=== PATIENT | male | born 2005 | race Two or more races ===

== ENCOUNTER 2025-04-14 15:36 | Inpatient (IN) | payer OTHER ==
[~2025-04-14] VITALS: Ht 170.2 cm; Wt 97.4 kg
[2025-04-14 01:00] VITALS: BP 134/79; PULSE 94; RESP 17; TEMP 97.7; O2SAT 96
--- NOTE | 2025-04-14 15:55 | ED.PDOC ---
GI ASSESSMENT HPI Comments This is a 19 year-old male who presents to the ED with a chief complaint of constipation with abdominal pain as of 0900 today. Patient reports abdominal pain woke him up from his sleep. Patient states he took laxatives earlier today with no relief. Patient additionally reports X1 episode of emesis after drinking water. Patient has no further complaints at this time and otherwise denies symptoms of chest pain, dysuria, diarrhea, fever, or chills. Chief Complaint: Abdominal Pain Time Seen by MD: 15:44 Reviewed Notes: Medications, Allergies Allergies: Coded Allergies: NO KNOWN ALLERGIES (Unverified , 04/14/25) Information Source: Patient Mode of Arrival: Ambulatory Timing: Hours Duration: Since onset Severity: Moderate Pain Location: Diffuse Associated sign and symptoms: Constipation Past Medical History PAST MEDICAL HISTORY: Denies Surgical History: Denies all surgeries Family History Family History: Reviewed,noncontributory to illness, No family hx of Cancer, No family hx of DM, No family hx of Heart reginald, No family hx of HTN, No family hx ofKidney reginald, No family hx of Liver reginald, No family hx of Lung reginald, No family hx of Stroke Social History Smoker: Non-Smoker Alcohol: Denies ETOH Use Drugs: Denies Drug Use Lives In: Home Constitutional: denies: chills, diaphoresis, fatigue, fever, malaise, sweats, weakness, others EENTM: denies: blurred vision, double vision, ear bleeding, ear discharge, ear drainage, ear pain, ear ringing, eye pain, eye redness, hearing loss, mouth pain, mouth swelling, nasal discharge, nose bleeding, nose congestion, nose pain, photophobia, tearing, throat pain, throat swelling, voice changes, others Respiratory: denies: cough, hemoptysis, orthopnea, SOB at rest, shortness of breath, SOB with excertion, stridor, wheezing, others Cardiovascular: denies: chest pain, dizzy spells, diaphoresis, Dyspnea on exertion, edema, irregular heart beat, left arm pain, lightheadedness, palpitations, PND, syncope, others Gastrointestinal: reports: abdominal pain, constipated; denies: abdomen dis tended, blood streaked bowels, diarrhea, dysphagia, difficulty swallowing, hematemesis, melena, nausea, poor appetite, poor fluid intake, rectal bleeding, rectal pain, vomiting, others Genitourinary: denies: burning, dysuria, flank pain, frequency, hematuria, incontinence, penile discharge, penile sore, pain, testicle pain, testicle swelling, urgency, others Neurological: denies: dizziness, fainting, headache, left sided numbness, left sided weakness, numbness, paresthesia, pre-existing deficit, right sided numbness, right sided weakness, seizure, speech problems, tingling, tremors, weakness, others Musculoskeletal: denies: back pain, gout, joint pain, joint swelling, muscle pain, muscle stiffness, neck pain, others Integumetry: denies: bruises, change in color, change in hair/nails, dryness, laceration, lesions, lumps, rash, wounds, others Allergic/Immunocompromised: denies: Difficulty Healing, Frequent Infections, Hives, Itching, others Hematologic/Lymphatic: denies: anemia, blood clots, easy bleeding, easy bruising, swollen glands, others Endocrine: denies: excessive hunger, excessive sweating, excessive thirst, excessive urination, flushing, intolerance to cold, intolerance to heat, unexplained weight gain, unexplained weight loss, others Psychiatric: denies: anxiety, bipolar disorder, depression, hopeless, panic disorder, schizophrenia, sleepless, suicidal, others All Other Systems: Reviewed and Negative Physical Exam General Appearance: Moderate Distress HEENT: Normal ENT Inspection, Pharynx Normal, TMs Normal Neck: Full Range of Motion, Non-Tender, Normal, Normal Inspection Respiratory: Chest Non-Tender, Lungs Clear, No Accessory Muscle Use, No Respiratory Distress, Normal Breath Sounds Cardiovascular: No Edema, No JVD, No Murmur, No Gallop, Normal Peripheral Pulses, Regular Rate/Rhythm Breast Exam: Deferred Gastrointestinal: Diffuse Genitalia: Deferred Pelvic: Deferred Rectal: Deferred Extremities: No calf tenderness, Normal capillary refill, Normal inspection, Normal range of motion, Non-tender, No pedal edema Musculoskeletal : Apperance: Normal Neurologic: Alert, equipment cleaner II-XII nml as Tested, No Motor Deficits, Normal Affect, Normal Mood, No Sensory Deficits Cerebellar Function: Normal Reflexes: Normal Skin: Dry, Normal Color, Warm Peripheral Pulses: 3+ Radial (R), 3+ Radial (L) Lymphatic: No Adenopathy Was a procedure done? Was a procedure done?: No GI differential Dx Differential Diagnosis: Constipation, Diverticular disease, Esophagitis, Gastritis/PUD, Gastroenteritis, Dehydration, Bacterial, Parasitic, Viral X-Ray, Labs, Meds, VS Vital Signs Date Time Temp Pulse Resp B/P (MAP) Pulse Ox O2 Delivery O2 Flow Rate FiO2 04/14/25 16:46 98.2 86 18 136/68 (90) 98 98.2 04/14/25 16:45 98.2 86 18 136/68 (90) 98 98.2 04/14/25 16:45 86 18 98 Room Air* 0 21 04/14/25 15:38 98.4 93 18 140/68 96 98.4 [place] [id number] Ph: [phone] DIAGNOSTIC IMAGING Diagnostic Imaging Report : [id number] Signed PATIENT: YONY HOUSE ACCT: [id number] UNIT: [id number] : 2005 LOC: ER ROOM / BED: / AGE / SEX: 19 / M ADM STATUS: REG ER SERVICE 1548 ORDERING PHYSICIAN: BÁRBARA BRUSH MD PROCEDURE(s): ABPL - CT AB PEL WO CON-NO ORAL OR IV REASON: constipation ORDER NUMBER(s): [id number], ACCESSION NUMBER(s): [id number] Indication: constipation Technique: CT axial images of the abdomen and pelvis are obtained without contrast. Coronal and sagittal reformats were obtained. Radiation Dose Information: CTDI volume is 18 mGy. Dose-length product is 1061 mGy*cm Comparison: None FINDINGS: There is limited interpretation of the abdomen and pelvis without administration of intravenous contrast. Lung bases demonstrate no pleural effusion. Adrenal glands, spleen, pancreas unremarkable in shape. Hepatic steatosis. No CT evidence for cholelithiasis. There is no hydronephrosis, nephrolithiasis. Stomach is partially distended. Small bowel loops are normal in caliber. Moderate volume stool within the colon. Appendix is enlarged measuring 10 mm in diameter. There are multiple obstructing appendicoliths measuring up to 7 mm. Right lower quadrant lymph nodes measuring up to 9 mm. Bladder partially distended. No free pelvic fluid. No inguinal lymphadenopathy. Mild bilateral sacroiliac degenerative joint disease. IMPRESSION: Limited evaluation without contrast. Acute appendicitis with multiple obstructing appendicoliths. Hepatic steatosis. Critical Result: Appendicitis Findings discussed with Dr Brush , at 04/14/2025 06:32 PM, and acknowledged receipt and understanding of the findings. .. Patient alert. Complaining of abdominal pain. Vitals stable. Answering questions. CT scan of the abdomen does show a appendicitis. Establish intravenous access. Was given fluids. Was given Rocephin. Was given Flagyl. Surgical consultation. Explained to the patient. Continue monitoring. Images Reviewed?: Images reviewed and evaluated by me Time of 1ST Reevaluation: 16:33 Reevaluation 1ST: Unchanged Patient Education/Counseling: Diagnosis, Treatment Family Education/Counseling: No Family Present SEPSIS Sepsis Screen Date sepsis recognized/suspect: Apr 14, 2025 Time Sepsis recognized/suspect: 1538 Recent Procedure: No On Antibiotic Therapy: No Respiratory Rate >20: No Heart Rate >90: Yes Temp<36 C (96.8 F) or >38.3 C: No SBP <90 or MAP <65 mmHG: No New Acute Mental Status Change: No Is the patient on CPAP, BIPAP,: No Physician Orders Ct Ab Pel Wo Con-No Oral Or Iv (04/14/25 15:48) Blood Culture (04/14/25 16:47) Lactic Acid W/ Reflex Order (04/14/25 16:47) Ceftriaxone 1gm/50ml (Rocephin) (04/14/25 17:00) Metronidazole 500mg/100ml (Flagyl 500mg/ (04/14/25 17:00) Complete Blood Count (04/14/25 16:47) Comprehensive Metabolic Panel (04/14/25 16:47) PTPTT (04/14/25 16:47) Chest Portable (04/14/25 16:47) Urinalysis (04/14/25 16:47) Sodium Chloride 0.9% (04/14/25 17:00) Sodium Chloride 0.9% (04/14/25 17:00) * Surgical Consult (04/14/25 ) Vital Signs Date Time Temp Pulse Resp B/P (MAP) Pulse Ox O2 Delivery O2 Flow Rate FiO2 04/14/25 16:46 98.2 86 18 136/68 (90) 98 98.2 04/14/25 16:45 98.2 86 18 136/68 (90) 98 98.2 04/14/25 16:45 86 18 98 Room Air* 0 21 04/14/25 15:38 98.4 93 18 140/68 96 98.4 Departure 1 Departure Time of Disposition: 16:50 Impression: Primary Impression: Acute appendicitis Qualified Codes: K35.80 - Unspecified acute appendicitis Disposition: ADMITTED INPATIENT Admit to: Med Surg Condition: Guarded Critical Care Note Critical Care Time?: Yes (90 min-critical care time only) Stability Stability form required: No Heart Score Heart Score: Heart Score Response (Comments) Value History N/A 0 EKG N/A 0 Age N/A 0 Risk Factors N/A 0 Troponin N/A 0 Total 0 I personally scribed for BÁRBARA BRUSH MD ([email or web address]) on 04/14/25 at 15:55. Electronically submitted by Barbara Alicia ([place]). I personally scribed for BÁRBARA BRUSH MD ([email or web address]) on 04/14/25 at 16:45. Electronically submitted by Barbara Alicia ([place]). I personally scribed for BÁRBARA BRUSH MD ([email or web address]) on 04/14/25 at 16:53. Electronically submitted by Barbara Alicia ([place]). BÁRBARA BRUSH MD Apr 14, 2025 15:55
--- NOTE | 2025-04-14 16:35 | DVH ---
Indication: constipation Technique: CT axial images of the abdomen and pelvis are obtained without contrast. Coronal and sagit poonam reformats were obtained. Radiation Dose Information: CTDI volume is 18 mGy. Dose-length product is 1061 mGy*cm Comparison: None FINDINGS: There is limited interpretation of the abdomen and pelvis without administration of intravenous contr ast. Lung bases demonstrate no pleural effusion. Adrenal glands, spleen, pancreas unremarkable in shape. Hepatic steatosis. No CT evidence for jovana lithiasis. There is no hydronephrosis, nephrolithiasis. Stomach is partially distended. Small bowel loops are normal in caliber. Moderate volume stool within the colon. Appendix is enlarged measuring 10 mm in diameter. There are multiple obstructing appendicoliths measuring up to 7 mm. Right lower quadrant lymph nodes measuring up to 9 mm. Bladder partially distended. No free pelvic fluid. No inguinal lymphadenopathy. Mild bilateral sacroiliac degenerative joint disease. IMPRESSION: Limited evaluation without contrast. Acute appendicitis with multiple obstructing appendicoliths. Hepatic steatosis. Critical Result: Appendicitis Findings discussed with Dr Carpio , at 04/14/2025 06:32 PM, and acknowledged receipt and understandi ng of the findings. ..
[2025-04-14 16:45] VITALS: PULSE 86; RESP 18; O2SAT 98
[2025-04-14 17:29] LABS: Hematocrit 46.3 % (41.0-53.0); Hemoglobin 15.9 g/dL (13.5-17.5); Mean Corpuscular Hemoglobin 29.2 pg (28.0-32.0); Mean Corpuscular Volume 84.9 fL (80.0-100.0); Nucleated Red Blood Cells % 0.0 %
[2025-04-14 17:30] VITALS: PULSE 83; RESP 11; O2SAT 98
--- NOTE | 2025-04-14 17:38 | DVH ---
EXAM: XY CHEST PORTABLE HISTORY: sob TECHNIQUE: 1 view of the chest COMPARISON: None FINDINGS/IMPRESSION: LUNGS: No pleural effusion, consolidation, or pneumothorax. MEDIASTINUM: Unremarkable. BONES: No acute osseous abnormality. OTHER: None.
[2025-04-14] MEDS: SODIUM CHLORIDE 0.9% 1,000 ML IV ONE ×2 (17:44→19:59)
[2025-04-14 17:51] LABS: Anion Gap 12 (5-15); BUN/Creatinine Ratio 9.9 (10.0-20.0); Bilirubin, Total 0.8 mg/dL (0.2-1.0); Calcium 9.9 mg/dL (8.7-10.4); Carbon Dioxide 24 mmol/L (20-31); Chloride 102 mmol/L (98-107); Potassium 3.7 mmol/L (3.5-5.1); Sodium 138 mmol/L (136-145)
[2025-04-14 17:55] LABS: Alanine Aminotransferase 66 U/L (7-40); Albumin 5.3 g/dL (3.2-4.8); Alkaline Phosphatase 123 U/L (46-116); Blood Urea Nitrogen 8 mg/dL (9-23); Glucose 106 mg/dL (74-106); Total Protein 8.4 g/dL (5.7-8.2)
[2025-04-14 18:22] LABS: INR 1.05 (0.9-1.15); Partial Thromboplastin Time 28.8 SEC (24.5-34.5); Prothrombin Time 11.1 sec (9.3-11.8)
[2025-04-14 18:23] LABS: Lactic Acid w/Reflex 2.6 mmol/L (0.4-2.0)
[2025-04-14] MEDS ORDERED: ONDANSETRON HCL 4 MG/2 ML VIAL IV PRN (18:45)
[2025-04-14] MEDS ORDERED: HYDROmorphone HCL 2 MG/ML VL/or syr IV PRN (19:00)
--- NOTE | 2025-04-14 19:02 | DVHHPRES ---
History of Present Illness Resident Creating Document: MAUREEN SLOAN RESIDENT History of Present Illness History of Present Illness (HPI): Jesusita Archibald is a 19-year-old male with no past medical history who presented to the hospital with complaints of abdominal pain since morning. Patient states that he woke up at 9:00 a.m. with abdominal pain and that he ate too much stew the last night. Patient says that he tried laxatives but was not able to pass stools. He also reports of associated vomiting and chills. He rates the pain an 8 on 10 in intensity, diffuse in quality, expanding, sudden in onset, continuous, with no radiation, increases with moving and in the supine position and decreases with sitting down. He denies any fever, headache or shortness of breath. Past Medical History (PMH): No relevant past medical history Past Surgical History (PSH): No relevant past surgical history Family history (FH): No relevant Family history EtOH: Denies alcohol use Smoking /Vaping: Denies smoke Recreational Drugs: Admits to occasional marijuana use Residence: Lives with family Home Medications: No home medications Allergies: No known allergy PCP: Patient does not have a PCP Specialist relevant to admission: Surgery Review of Systems Review of Systems General: patient denies fever, fatigue, weaknes, sweating, any recent changes in appetite and weight HEENT: No headaches, visiual changes, hearing loss, tinnitus, nasal congestion and discharge, and sore throat. Cardiovascular: Denies chest pain, palpitations, dyspnea on exertion, orthopnea, or claudication. Respiratory: No cough, and wheezing. Gastrointestinal: Complains of abdominal pain and vomiting Genitourinary: No dysuria, hematuria, discharge, frequency, urgency, nocturia, incontinence, and urinary retention. Endocrine: No heat or cold intolerance, polydipsia, polyuria, and polyphagia. Neurological: No dizziness, extremity weakness and numbness, tremors, gait disturbance, seizures, and memory impairment. Psychiatric: Denies depression, anxiety,or insomnia. Musculoskeletal: Denies neck pain, stiffness and swelling, back pain, muscle weakness, joint pain, stiffness, swelling, or limited range of motion. Skin: No rashes, itching, skin lesion, changes in hair, nail, skin texture and breast. Hematologic/Lymphatic: Denies easy bruising, bleeding tendencies, or lymph node enlargement. Allergies: Coded Allergies: NO KNOWN ALLERGIES (Unverified , 04/14/25) Medications Current Medications Medications Dose Ordered Sig/Jason Route Start Time Stop Time Status Last Admin Dose Admin Ondansetron HCl 4 mg Q4HP PRN IV 04/14/25 18:45 UNV Piperacillin Sod/ Tazobactam Sod 100 ml @ 100 mls/hr Q6HR IV 04/15/25 00:00 UNV Hydromorphone HCl 0.25 mg Q6HP PRN IV 04/14/25 19:00 UNV Pantoprazole Sodium 40 mg DAILY IV 04/14/25 19:00 UNV Exam Vital Signs Vital Signs Date Time Temp Pulse Resp B/P (MAP) Pulse Ox O2 Delivery O2 Flow Rate FiO2 04/14/25 16:46 98.2 86 18 136/68 (90) 98 98.2 04/14/25 16:45 Room Air* 0 21 Exam General Appearance: Alert, Oriented X3, Cooperative, No acute distress HEENT: Atraumatic, PERRLA, EOMI, Mucous membrane moist/pink Respiratory: Clear to auscultation, Normal air movement Cardiovascular: Regular rate, Normal S1, Normal S2, No murmurs, no chest wall tenderness Abdominal: Abdomen soft, normal bowel sounds, Periumbilical tenderness present, no rigidity or rebound tenderness Extremities: No clubbing, No cyanosis, No edema, Normal pulses, No tenderness/swelling Skin: No rashes, No breakdown, No significant lesion Neuro: Normal gait, Normal speech, Strength at 5/5 X4 ext, Normal tone, Sensation intact, Cranial nerves 3-12 NL, Reflexes 2+ Psych/Mental Status: Mental status NL, Mood NL Labs/Xrays Labs Test 04/14/25 17:04 Range/Units White Blood Count 16.3 H 4.4-10.8 10^3/uL Red Blood Count 5.45 4.5-5.90 10^6/uL Hemoglobin 15.9 13.5-17.5 g/dL Hematocrit 46.3 41.0-53.0 % Mean Corpuscular Volume 84.9 80.0-100.0 fL Mean Corpuscular Hemoglobin 29.2 28.0-32.0 pg Mean Corpuscular Hemoglobin Concent 34.4 32.0-36.0 g/dL Red Cell Distribution Width 13.4 11.8-14.3 % Platelet Count 233 140-450 10^3/uL Mean Platelet Volume 8.4 6.9-10.8 fL Neutrophils (%) (Auto) 88.8 H 37.0-80.0 % Lymphocytes (%) (Auto) 5.7 L 10.0-50.0 % Monocytes (%) (Auto) 5.4 0.0-12.0 % Eosinophils (%) (Auto) 0.0 0.0-7.0 % Basophils (%) (Auto) 0.1 0.0-2.0 % Neutrophils # (Auto) 14.5 H 1.6-8.6 10 ^3/uL Lymphocytes # (Auto) 0.9 0.4-5.4 10 ^3/uL Monocytes # (Auto) 0.9 0-1.3 10 ^3/uL Eosinophils # (Auto) 0 0-0.8 10 ^3/uL Basophils # (Auto) 0 0-0.2 10 ^3/uL Nucleated Red Blood Cells 0.0 % Prothrombin Time 11.1 9.3-11.8 sec Prothrombin Time INR 1.05 0.9-1.15 Activated Partial Thromboplast Time 28.8 24.5-34.5 SEC Sodium Level 138 136-145 mmol/L Potassium Level 3.7 3.5-5.1 mmol/L Chloride Level 102 98-107 mmol/L Carbon Dioxide Level 24 20-31 mmol/L Anion Gap 12 5-15 Blood Urea Nitrogen 8 L 9-23 mg/dL Creatinine 0.81 0.700-1.30 mg/dL Glomerular Filtration Rate Calc 130 >90 mL/min BUN/Creatinine Ratio 9.9 L 10.0-20.0 Serum Glucose 106 74-106 mg/dL Lactic Acid Level 2.6 *H 0.4-2.0 mmol/L Calcium Level 9.9 8.7-10.4 mg/dL Total Bilirubin 0.8 0.2-1.0 mg/dL Aspartate Amino Transferase (AST) 32 13-40 U/L Alanine Aminotransferase (ALT) 66 H 7-40 U/L Alkaline Phosphatase 123 H 46-116 U/L Total Protein 8.4 H 5.7-8.2 g/dL Albumin 5.3 H 3.2-4.8 g/dL SEPSIS Sepsis Screen Date sepsis recognized/suspect: Apr 14, 2025 Time Sepsis recognized/suspect: 1644 Recent Procedure: No On Antibiotic Therapy: No Respiratory Rate >20: No Heart Rate >90: No Temp<36 C (96.8 F) or >38.3 C: No SBP <90 or MAP <65 mmHG: No New Acute Mental Status Change: No Is the patient on CPAP, BIPAP,: No Physician Orders Ct Ab Pel Wo Con-No Oral Or Iv (04/14/25 15:48) Blood Culture (04/14/25 16:47) Chest Portable (04/14/25 16:47) Urinalysis (04/14/25 16:47) Sodium Chloride 0.9% (04/14/25 17:00) Admit (04/14/25 18:34) Allergies (04/14/25 18:34) Code Status (04/14/25 18:34) Ondansetron Hcl (Zofran) (04/14/25 18:45) Complete Blood Count (04/15/25 04:00) Comprehensive Metabolic Panel (04/15/25 04:00) Npo (Nothing By Mouth) Diet (04/15/25 Breakfast) Condition: Fair (04/14/25 18:34) Drug Screen (04/14/25 18:45) Lactic Acid W/ Reflex Order (04/15/25 04:00) Piperacillin-Tazob 3.375gm (Zosyn 3.375g (04/15/25 00:00) * Surgical Consult (04/14/25 18:45) Electrocardigram (04/14/25 18:50) Hydromorphone Injection (Dilaudid Inject (04/14/25 19:00) Pantoprazole (Protonix) (04/14/25 19:00) Vital Signs Date Time Temp Pulse Resp B/P (MAP) Pulse Ox O2 Delivery O2 Flow Rate FiO2 04/14/25 16:46 98.2 86 18 136/68 (90) 98 98.2 04/14/25 16:45 98.2 86 18 136/68 (90) 98 98.2 04/14/25 16:45 86 18 98 Room Air* 0 21 04/14/25 15:38 98.4 93 18 140/68 96 98.4 Laboratory Tests Test 04/14/25 17:04 Lactic Acid Level 2.6 mmol/L (0.4-2.0) *H White Blood Count 16.3 10^3/uL (4.4-10.8) H Medications Medications Dose Ordered Sig/Jason Route Start Time Stop Time Status Last Admin Dose Admin Ceftriaxone Sodium 50 ml @ 100 mls/hr ONCE ONCE IV 04/14/25 17:00 04/14/25 17:29 DC 04/14/25 17:45 100 MLS/HR Sodium Chloride 1,000 ml @ 1,000 mls/hr Q1H ONCE IV 04/14/25 17:00 04/14/25 17:59 DC 04/14/25 17:44 1,000 MLS/HR Assessment/Plan Assessment/Plan 19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 Assessment and plan #Severe Sepsis blood culture repeat lactate in the am, repeat labs. S/p Ceftriaxone and flaggy Zosyn to continue. intake output with Hemodynamic monitoring. UTI, TSH, to check . #Acute appendicitis Surgical Consult, NPO, Sepsis dose fluid. Check INR/PT, presurgical EKG and electrolytes check. Pain control with iv dilauded. #Acute appendicitis with multiple obstructing appendicoliths waiting for surgical management. #Hepatic steatosis likely due to fatty liver, weight loss, lifestyle changes. #Grade I obesity BMI 33.6, weight loss counseling. Diet: NPO Consult: Surgery PUD prophylaxis: IV ppi. DVT prophylaxis: sc lovenox. Code Status: Full Code Disposition: Med Surgery Medical care and goals of care discussion needed 37 minutes. Patient agreeable. Discussed with Dr. Mota. Plan discussed with: Patient My Orders Orders - MAUREEN SLOAN RESIDENT Procedure Category Date Status Time Admit ADMIT 04/14/25 Transmitted 18:34 Allergies VALERIE 04/14/25 In Process 18:34 Code Status CODE 04/14/25 Transmitted 18:34 Ondansetron Hcl PHA 04/14/25 Logged (Zofran) 18:45 Complete Blood Count LAB 04/15/25 Verified 04:00 Comprehensive LAB 04/15/25 Verified Metabolic Panel 04:00 Npo (Nothing By DIET 04/15/25 Transmitted Mouth) Diet Breakfast Condition: Fair VALERIE 04/14/25 In Process 18:34 Date of Service: Apr 14, 2025 Billing Provider: KODY MOTA MD Common Visit Codes: 62203-HKQRGWL INP/OBS CARE (HIGH) Secondary Visit Codes: 21513-[id number] CARE PLAN 30 MINUTES MAUREEN SLOAN RESIDENT Apr 14, 2025 19:02 WARNER SHERIFF RESIDENT Apr 14, 2025 19:04
[2025-04-14] MEDS: PANTOPRAZOLE 40 MG/10 ML VIAL INJ IV SCH (19:51)
[2025-04-14 20:01] VITALS: BP 124/64; PULSE 100; RESP 17; TEMP 98.3; O2SAT 97
[2025-04-14 21:00] VITALS: BP 124/64; PULSE 100; RESP 17; TEMP 98.3; O2SAT 97
[2025-04-14 23:30] VITALS: BP 141/74; PULSE 88; RESP 17; TEMP 98.7; O2SAT 98
[2025-04-15] VITALS (9 sets, daily range): BP systolic 102–118; BP diastolic 55–76; PULSE 91–103; RESP 16–21; TEMP 97.5–98; O2SAT 77–100
[2025-04-15] MEDS: PIPERACILLIN-TAZOB 3.375GM 100 ML IV SCH (00:06)
[2025-04-15 01:04] LABS: Urine Protein, UAD Negative (Negative)
[2025-04-15 01:19] LABS: Amphetamine Screen, Urine Neg (NEGATIVE); Barbiturate Scree,Urine Neg (NEGATIVE); Benzodiazephine Screen, Urine Neg (NEGATIVE); Cocaine Screen, Urine Neg (NEGATIVE)
[2025-04-15 01:20] LABS: Cannabinoid Screen, Urine Neg (NEGATIVE); Opiate Scree,Urine Neg (NEGATIVE); Phencyclidine Screen, Urine Neg (NEGATIVE)
[2025-04-15 07:09] LABS: Hematocrit 42.8 % (41.0-53.0); Hemoglobin 14.9 g/dL (13.5-17.5); Mean Corpuscular Hemoglobin 29.5 pg (28.0-32.0); Mean Corpuscular Volume 84.6 fL (80.0-100.0); Nucleated Red Blood Cells % 0.0 %
[2025-04-15 07:31] LABS: Albumin 4.7 g/dL (3.2-4.8); Alkaline Phosphatase 102 U/L (46-116); Anion Gap 9 (5-15); BUN/Creatinine Ratio 7.1 (10.0-20.0); Calcium 9.2 mg/dL (8.7-10.4); Carbon Dioxide 28 mmol/L (20-31); Chloride 104 mmol/L (98-107); Glucose 104 mg/dL (74-106); Potassium 4.1 mmol/L (3.5-5.1); Sodium 141 mmol/L (136-145); Total Protein 7.3 g/dL (5.7-8.2)
[2025-04-15 07:37] LABS: Alanine Aminotransferase 50 U/L (7-40); Bilirubin, Total 1.6 mg/dL (0.2-1.0); Blood Urea Nitrogen 7 mg/dL (9-23)
[2025-04-15] MEDS: ACETAMINOPHEN 325 MG TAB PO PRN (09:34)
[2025-04-15] MEDS: D5W/SOD CHL 0.45% 1,000 ML IV SCH (09:43)
[2025-04-15] MEDS ORDERED: ACETAMINOPHEN IV 1000 MG/100ML (10MG/ML) IV ONE (11:45)
[2025-04-15] MEDS ORDERED: METOCLOPRAMIDE HCL 5MG/ml INJ 2ml VIAL IV PRN (11:45)
[2025-04-15] MEDS ORDERED: ONDANSETRON HCL 4 MG/2 ML VIAL IV PRN (11:45)
[2025-04-15] MEDS ORDERED: HYDROmorphone HCL 2 MG/ML VL/or syr IV PRN (11:45)
[2025-04-15] MEDS ORDERED: ceFAZolin 2 GM/D5W50ml 0 ML IV ONE (11:48)
--- NOTE | 2025-04-15 11:48 | DVHINCON2 ---
Date of service: Apr 15, 2025 History of Present Illness 19-year-old otherwise healthy male complaining of one day history of periumbilical pain now localized more in the right lower quadrant without fevers, chills, nausea or vomiting. Past Medical History None Past Surgical History None Family History Noncontributory Social History No alcohol, tobacco, IV drug use Allergies: Coded Allergies: NO KNOWN ALLERGIES (Unverified , 04/14/25) Current Medications Current Medications Medications (Trade) Dose Ordered Sig/Jason Route PRN Reason Start Time Stop Time Status Last Admin Ondansetron HCl (Zofran) 4 mg Q4HP PRN IV NAUSEA / VOMITING 04/14/25 18:45 Piperacillin Sod/ Tazobactam Sod 100 ml @ 100 mls/hr Q6HR IV 04/15/25 00:00 04/15/25 04:46 Hydromorphone HCl (Dilaudid Injection) 0.25 mg Q6HP PRN IV SEVERE PAIN (7-10 PAIN SCALE) 04/14/25 19:00 Pantoprazole Sodium (Protonix) 40 mg DAILY IV 04/14/25 19:00 04/15/25 09:33 Acetaminophen (Tylenol Tablet) 650 mg Q6HP PRN PO MILD PAIN (1-3 PAIN SCALE) 04/15/25 08:45 04/15/25 09:34 Dextrose/Sodium Chloride 1,000 ml @ 125 mls/hr Q8H IV 04/15/25 09:30 04/15/25 09:43 Vital Signs Vital Signs Date Time Temp Pulse Resp B/P (MAP) Pulse Ox O2 Delivery O2 Flow Rate FiO2 04/15/25 09:00 98.0 103 16 118/76 (90) 100 98.0 04/14/25 20:00 Room Air* 0 21 Physical Exam GEN: Age-appropriate male in no acute distress. Alert. HEENT: Normocephalic atraumatic. Moist mucous membranes. Anicteric sclerae. CV: RRR Respiratory: CTAB ABD: Minimal right lower quadrant tenderness to palpation without guarding or rebound. Nondistended. CT of the abdomen and pelvis: Enlarged appendix measuring 10 mm with multiple obstructing appendicolith consistent with acute appendicitis Labs/Diagnostic Data Labs Test 04/15/25 04:45 04/15/25 00:53 04/14/25 17:04 Range/Units White Blood Count 8.6 # 4.4-10.8 10^3/uL Red Blood Count 5.05 4.5-5.90 10^6/uL Hemoglobin 14.9 13.5-17.5 g/dL Hematocrit 42.8 41.0-53.0 % Mean Corpuscular Volume 84.6 80.0-100.0 fL Mean Corpuscular Hemoglobin 29.5 28.0-32.0 pg Mean Corpuscular Hemoglobin Concent 34.8 32.0-36.0 g/dL Red Cell Distribution Width 13.3 11.8-14.3 % Platelet Count 206 140-450 10^3/uL Mean Platelet Volume 8.2 6.9-10.8 fL Neutrophils (%) (Auto) 63.5 37.0-80.0 % Lymphocytes (%) (Auto) 27.2 10.0-50.0 % Monocytes (%) (Auto) 8.3 0.0-12.0 % Eosinophils (%) (Auto) 0.7 0.0-7.0 % Basophils (%) (Auto) 0.3 0.0-2.0 % Neutrophils # (Auto) 5.5 1.6-8.6 10 ^3/uL Lymphocytes # (Auto) 2.3 0.4-5.4 10 ^3/uL Monocytes # (Auto) 0.7 0-1.3 10 ^3/uL Eosinophils # (Auto) 0.1 0-0.8 10 ^3/uL Basophils # (Auto) 0 0-0.2 10 ^3/uL Nucleated Red Blood Cells 0.0 % Sodium Level 141 136-145 mmol/L Potassium Level 4.1 3.5-5.1 mmol/L Chloride Level 104 98-107 mmol/L Carbon Dioxide Level 28 20-31 mmol/L Anion Gap 9 5-15 Blood Urea Nitrogen 7 L 9-23 mg/dL Creatinine 0.99 0.700-1.30 mg/dL Glomerular Filtration Rate Calc 113 >90 mL/min BUN/Creatinine Ratio 7.1 L 10.0-20.0 Serum Glucose 104 74-106 mg/dL Lactic Acid Level 1.6 0.4-2.0 mmol/L Calcium Level 9.2 8.7-10.4 mg/dL Total Bilirubin 1.6 H 0.2-1.0 mg/dL Aspartate Amino Transferase (AST) 22 13-40 U/L Alanine Aminotransferase (ALT) 50 H 7-40 U/L Alkaline Phosphatase 102 46-116 U/L Total Protein 7.3 5.7-8.2 g/dL Albumin 4.7 3.2-4.8 g/dL Urine Color Light-yellow Yellow Urine Clarity Clear Clear Urine pH 7.0 5.0-9.0 Urine Specific [place] 1.010 1.001-1.035 Urine Protein Negative Negative Urine Ketones Negative Negative Urine Blood Negative Negative /uL Urine Nitrite Negative Negative Urine Bilirubin Negative Negative Urine Urobilinogen Normal Negative mg/dL Urine Leukocyte Esterase Negative Negative /uL Urine RBC <1 0 - 3 /hpf Urine Microscopic WBC 1 0-3 /HPF Urine Squamous Epithelial Cells None seen <5 /hpf Urine Bacteria None seen None Seen /hpf Urine Glucose Normal Normal mg/dL Urine Opiates Screen Neg NEGATIVE Urine Fentanyl Screen Neg NEGATIVE Urine Barbiturates Screen Neg NEGATIVE Urine Phencyclidine Screen Neg NEGATIVE Urine Amphetamines Screen Neg NEGATIVE Urine Benzodiazepines Screen Neg NEGATIVE Urine Cocaine Screen Neg NEGATIVE Urine Cannabinoids Screen Neg NEGATIVE Prothrombin Time 11.1 9.3-11.8 sec Prothrombin Time INR 1.05 0.9-1.15 Activated Partial Thromboplast Time 28.8 24.5-34.5 SEC Thyroid Stimulating Hormone (TSH) 0.63 0.55-4.78 uIU/mL Assessment 1. Acute appendicitis Plan/Recommendation 1. Laparoscopic appendectomy possible open surgery Informed consent: The surgery and its risks including but not limited to infection, bleeding requiring possible blood transfusion with the risk of hepatitis or HIV infection, possible open surgery, possibility that the abdominal pain is caused by different intra-abdominal pathology other than acute appendicitis in which case we will proceed with the appendectomy if it is safe to do so and then treat the problem according to intraoperative findings were explained to the patient. All questions were answered to his satisfaction. He expressed verbal understanding and wished to proceed with the surgery. Plan discussed with: Patient HARSH SNIDER MD Apr 15, 2025 11:48
[2025-04-15] MEDS ORDERED: fentaNYL CITRATE 100 MCG/2 ML VL ONE ×2 (12:00→13:13)
[2025-04-15] MEDS ORDERED: MIDAZOLAM HCL 2MG/2ML 2ml VIAL (1mg/ml) ONE (12:00)
[2025-04-15] MEDS ORDERED: METOCLOPRAMIDE HCL 5MG/ml INJ 2ml VIAL ONE (12:01)
[2025-04-15] MEDS ORDERED: PROPOFOL 10 MG/ML 20 ML IV ONE (12:01)
[2025-04-15] MEDS ORDERED: ROCURONIUM 10MG/ML 10ML VIAL IV ONE (12:01)
[2025-04-15] MEDS ORDERED: ONDANSETRON HCL 4 MG/2 ML VIAL ONE (12:01)
[2025-04-15] MEDS ORDERED: BUPIVACAINE 0.25% INJ 50ML VIAL ONE (12:16)
[2025-04-15] MEDS ORDERED: ceFAZolin 1GM VL ONE (12:47)
[2025-04-15] MEDS ORDERED: SODIUM CHLORIDE LOCK 10 ML ONE (12:47)
[2025-04-15] MEDS ORDERED: HYDROmorphone HCL 2 MG/ML VL/or syr ONE (12:50)
[2025-04-15] MEDS ORDERED: SUGAMMADEX 200mg/2ml Vial (100MG/ML) IV ONE (12:59)
[2025-04-15] MEDS ORDERED: LIDOCAINE W/ EPINEPHRINE 2% INJ 20ML VIAL ONE (13:00)
[2025-04-15] MEDS: LIDOCAINE 1%-Mpf/Epinephrine 1:200,000 30ml VIAL ONE (13:00)
--- NOTE | 2025-04-15 13:31 | DVHOP2 ---
Operative Report - 2 Report Details Date: 04/15/25 Preop Diagnosis: 1. Acute appendicitis Postop Diagnosis: 1. Same Surgeon: Harsh Roman MD [employer] C[employer]: None Anesthesiologist: Lizzette Unger CRNA Anesthesia: General, Local Consent: The surgery and its risks including but not limited to infection, bleeding requi ring possible blood transfusion with the risk of hepatitis or HIV infection, possible open surgery, possibility that the abdominal pain is caused by different intra-abdominal pathology other than acute appendicitis in which case we will proceed with the appendectomy if it is safe to do so and then treat the problem according to intraoperative findings were explained to the patient. All questions were answered to his satisfaction. He expressed verbal understanding and wished to proceed with the surgery. Complications: None Estimated Blood Loss: 20 mL Fluids: 1400 mL Name of Procedure Performed Laparoscopic appendectomy Procedure Details Procedure Details: After induction of general anesthesia, a Bhatia catheter was placed by the OR nursing staff. Patient's abdomen was then prepped and draped in standard surgical fashion. A small infraumbilical incision was made and this incision was taken through the abdominal wall down to the fascia which was opened sharply. Peritoneum was then bluntly divided gaining access to the intra- abdominal cavity. Interrupted 0 Vicryl sutures were placed through the fascial incision and using an open technique, Marie trocar was introduced and secured using the Vicryl sutures. Abdomen was insufflated to 15 mmHg and camera was inserted. Visual examination of the intestine under the fascial incision appeared normal without injury. Under direct visualization, a 5 mm bladeless trocar was placed in the left lower quadrant and a 2nd 5 mm bladeless trocar was placed in the suprapubic region both under direct visualization. Examination of the right lower quadrant revealed inflamed and slightly dilated appendix without perforation. Endovascular stapler was used to staple across the mesoappendix to the base of the appendix. The base of the appendix was then stapled and divided using a regular endo stapler. Appendix was then removed from the abdominal cavity using an endo pouch bag and sent off the surgical field. Abdomen was then re-insufflated and staple line was examined which appeared intact without bleeding or leaks. There was small amount of slightly cloudy fluid collected in the pelvis which was aspirated away. Pelvic area was then well irrigated until fluid was clear. Trocars were then removed under direct visualization as the abdomen was deflated. Additional interrupted 0 Vicryl sutures were placed through the fascial incision and and the sutures were tied down closing off the infraumbilical fascia. Surgical sites were irrigated injected with 20 mL of 1% lidocaine with epinephrine. Skin incisions were closed using deven. Surgical sites were cleaned and dried and dressings were applied. Sponge, needle, instrument count at the end of the case were reported to be correct by the nursing staff. The patient tolerated procedure well and was awake, extubated and transferred to recovery in stable condition. Specimen: Appendix Condition Stable Disposition Still a Patient HARSH ROMAN MD Apr 15, 2025 13:31
[2025-04-15] MEDS: SODIUM CHLORIDE 0.9% 1,000 ML IV SCH (13:45)
[2025-04-15] MEDS: EPINEPHrine HCL 0.5 ML NEB ONE (13:54)
[2025-04-15] MEDS: ALBUTEROL SULF 2.5 MG/0.5ML(0.5%) NEB SOLN ONE (15:05)
[2025-04-15] MEDS: ALBUTEROL SULF 2.5 MG/0.5ML(0.5%) NEB SOLN NEB ONE (15:06)
[2025-04-15 16:36] LABS: INR 1.16 (0.9-1.15); Partial Thromboplastin Time 29.6 SEC (24.5-34.5); Prothrombin Time 12.1 sec (9.3-11.8)
--- NOTE | 2025-04-15 16:38 | DVHPNRES ---
Progress Note Date Seen: Apr 15, 2025 Resident Creating Document: MAUREEN SLOAN RESIDENT Medical Necessity Reason Pt with a Central, PICC or Fol: No Subjective Review of Systems Patient seen at bedside. No new complaints. Patient is being scheduled for surgery today. History of Present Illness (HPI): Jesusita Archibald is a 19-year-old male with no past medical history who presented to the hospital with complaints of abdominal pain since morning. Patient states that he woke up at 9:00 a.m. with abdominal pain and that he ate too much stew the last night. Patient says that he tried laxatives but was not able to pass stools. He also reports of associated vomiting and chills. He rates the pain an 8 on 10 in intensity, diffuse in quality, expanding, sudden in onset, continuous, with no radiation, increases with moving and in the supine position and decreases with sitting down. He denies any fever, headache or shortness of breath. Past Medical History (PMH): No relevant past medical history Past Surgical History (PSH): No relevant past surgical history Family history (FH): No relevant Family history EtOH: Denies alcohol use Smoking /Vaping: Denies smoke Recreational Drugs: Admits to occasional marijuana use Residence: Lives with family Home Medications: No home medications Allergies: No known allergy PCP: Patient does not have a PCP Specialist relevant to admission: Surgery General: patient denies fever, fatigue, weaknes, sweating, any recent changes in appetite and weight HEENT: No headaches, visiual changes, hearing loss, tinnitus, nasal congestion and discharge, and sore throat. Cardiovascular: Denies chest pain, palpitations, dyspnea on exertion, orthopnea, or claudication. Respiratory: No cough, and wheezing. Gastrointestinal: Complains of abdominal pain and vomiting Genitourinary: No dysuria, hematuria, discharge, frequency, urgency, nocturia, incontinence, and urinary retention. Endocrine: No heat or cold intolerance, polydipsia, polyuria, and polyphagia. Neurological: No dizziness, extremity weakness and numbness, tremors, gait disturbance, seizures, and memory impairment. Psychiatric: Denies depression, anxiety,or insomnia. Musculoskeletal: Denies neck pain, stiffness and swelling, back pain, muscle weakness, joint pain, stiffness, swelling, or limited range of motion. Skin: No rashes, itching, skin lesion, changes in hair, nail, skin texture and breast. Hematologic/Lymphatic: Denies easy bruising, bleeding tendencies, or lymph node enlargement. Objective vital signs Vital Sign Date Time Temp Pulse Resp B/P (MAP) Pulse Ox O2 Delivery O2 Flow Rate FiO2 04/15/25 15:12 91 18 100 04/15/25 15:07 Nasal Cannula* 3 32 04/15/25 14:45 109/61 (77) 04/15/25 13:27 98.1 98.1 Total Intake and Output 04/14/25 04/14/25 04/15/25 15:00 23:00 07:00 Intake Total 0 ml Balance 0 ml medications Current Medications Medications Dose Ordered Sig/Jason Route Start Time Stop Time Status Last Admin Dose Admin Ondansetron HCl 4 mg Q4HP PRN IV 04/14/25 18:45 Piperacillin Sod/ Tazobactam Sod 100 ml @ 100 mls/hr Q6HR IV 04/15/25 00:00 04/15/25 04:46 100 MLS/HR Hydromorphone HCl 0.25 mg Q6HP PRN IV 04/14/25 19:00 Pantoprazole Sodium 40 mg DAILY IV 04/14/25 19:00 04/15/25 09:33 40 MG Acetaminophen 650 mg Q6HP PRN PO 04/15/25 08:45 04/15/25 09:34 650 MG Sodium Chloride 1,000 ml @ 75 mls/hr [id number] IV 04/15/25 13:45 Examination General Appearance: Alert, Oriented X3, Cooperative, No acute distress HEENT: Atraumatic, PERRLA, EOMI, Mucous membrane moist/pink Respiratory: Clear to auscultation, Normal air movement Cardiovascular: Regular rate, Normal S1, Normal S2, No murmurs, no chest wall tenderness Abdominal: Abdomen soft, normal bowel sounds, Periumbilical tenderness present, no rigidity or rebound tenderness Extremities: No clubbing, No cyanosis, No edema, Normal pulses, No tenderness/swelling Skin: No rashes, No breakdown, No significant lesion Neuro: Normal gait, Normal speech, Strength at 5/5 X4 ext, Normal tone, Sensation intact, Cranial nerves 3-12 NL, Reflexes 2+ Psych/Mental Status: Mental status NL, Mood NL laboratory and microbiology Laboratory Tests 04/15/25 04:45 Test 04/15/25 04:45 Range/Units Serum Glucose 104 74-106 mg/dL Problem List/Assessment/Plan Problem List/Assessment/Plan Assessment and plan #Severe Sepsis blood culture repeat lactate in the am, repeat labs. S/p Ceftriaxone and flaggy Zosyn to continue. intake output with Hemodynamic monitoring. UTI, TSH, to check . #Acute appendicitis Surgical Consult-scheduled for surgery today NPO, Sepsis dose fluid. Check INR/PT, presurgical EKG and electrolytes check. Pain control with iv dilauded. #Acute appendicitis with multiple obstructing appendicoliths waiting for surgical management. #Hepatic steatosis likely due to fatty liver, weight loss, lifestyle changes. #Grade I obesity BMI 33.6, weight loss counseling. Diet: NPO Consult: Surgery PUD prophylaxis: IV ppi. DVT prophylaxis: sc lovenox. Code Status: Full Code Disposition: Med Surgery Medical care and goals of care discussion needed 37 minutes. Patient agreeable. Discussed with Dr. Mota. Plan discussed with: Patient Plan discussed with: Patient My Orders My Orders Orders - MAUREEN SLOAN RESIDENT Procedure Category Date Status Time Admit ADMIT 04/14/25 Transmitted 18:34 Allergies VALERIE 04/14/25 In Process 18:34 Code Status CODE 04/14/25 Transmitted 18:34 Ondansetron Hcl PHA 04/14/25 In Process (Zofran) 18:45 Condition: Fair VALERIE 04/14/25 In Process 18:34 Hepatitis B Surface LAB 04/15/25 In Process Antibody 04:00 Hepatitis C Antibody LAB 04/15/25 In Process 04:00 Lactic Acid W/ Reflex LAB 04/15/25 In Process Order 06:56 Electrocardigram EKG 04/15/25 Logged 10:57 PTPTT LAB 04/15/25 In Process 10:57 Strict Aspiration VALERIE 04/15/25 Transmitted Precautions 16:25 May Have Head Of Bed VALERIE 04/15/25 Transmitted up 16:25 Chest Two Views XY 04/15/25 Logged Routine 16:25 Date of Service: Apr 15, 2025 Billing Provider: KODY MOTA MD Common Visit Codes: [id number] INP/OBS CARE(HIGH) MAUREEN SLOAN RESIDENT Apr 15, 2025 16:38
[2025-04-15 16:42] LABS: Lactic Acid w/Reflex 2.3 mmol/L (0.4-2.0)
--- NOTE | 2025-04-15 17:11 | DVH ---
EXAM: XY CHEST PORTABLE CLINICAL HISTORY: SHORTNESS OF BREATH TECHNIQUE: Single AP view of the chest WID: COMPARISON: XY CHEST PORTABLE on DOS: 04/14/25 FINDINGS: Lines and tubes: None Chest: The heart size and pulmonary vasculature is within normal limits. No pleural effusion, pneumothorax, or consolidation. The osseous structures are grossly intact. IMPRESSION: 1. No acute cardiopulmonary abnormality.
[2025-04-16 01:00] VITALS: BP 111/72; PULSE 87; RESP 18; TEMP 98.1; O2SAT 96
[2025-04-16 05:00] VITALS: BP 107/66; PULSE 85; RESP 19; TEMP 98.1; O2SAT 96
[2025-04-16 06:53] LABS: Hematocrit 41.2 % (41.0-53.0); Hemoglobin 14.3 g/dL (13.5-17.5); Mean Corpuscular Hemoglobin 29.3 pg (28.0-32.0); Mean Corpuscular Volume 84.3 fL (80.0-100.0); Nucleated Red Blood Cells % 0.0 %
[2025-04-16 07:00] LABS: Alkaline Phosphatase 95 U/L (46-116); Anion Gap 13 (5-15); Calcium 9.2 mg/dL (8.7-10.4); Carbon Dioxide 24 mmol/L (20-31); Chloride 103 mmol/L (98-107); Potassium 3.9 mmol/L (3.5-5.1); Sodium 140 mmol/L (136-145)
[2025-04-16 07:01] LABS: Total Protein 7.4 g/dL (5.7-8.2)
[2025-04-16 07:02] LABS: Albumin 4.6 g/dL (3.2-4.8); Bilirubin, Total 0.6 mg/dL (0.2-1.0)
[2025-04-16 07:03] LABS: Alanine Aminotransferase 51 U/L (7-40); BUN/Creatinine Ratio 6.8 (10.0-20.0); Blood Urea Nitrogen < 5 mg/dL (9-23); Glucose 116 mg/dL (74-106)
[2025-04-16 09:00] VITALS: BP 121/71; PULSE 80; RESP 20; TEMP 98.1; O2SAT 99
[2025-04-16] MEDS: ENOXAPARIN SOD 40 MG/0.4 ML SYRINGE SC SCH (09:39)
[2025-04-16 10:00] VITALS: O2SAT 99
[2025-04-16 13:00] VITALS: BP 103/65; PULSE 83; RESP 20; TEMP 98.7; O2SAT 99
[2025-04-16] MEDS ORDERED: AUG875T PO (15:47)
[2025-04-16] MEDS ORDERED: ACET-1882 PO (15:47)
--- NOTE | 2025-04-16 15:55 | DVHDSRES ---
Discharge Summary Date of Admission Resident Creating Document: MAUREEN SLOAN RESIDENT Apr 14, 2025 at 18:34 Date of Discharge: Apr 16, 2025 Labs/Diagnostic Data: Laboratory Results Test 04/16/25 05:47 04/15/25 16:03 04/15/25 04:45 04/15/25 00:53 White Blood Count 8.0 10^3/uL (4.4-10.8) Red Blood Count 4.89 10^6/uL (4.5-5.90) Hemoglobin 14.3 g/dL (13.5-17.5) Hematocrit 41.2 % (41.0-53.0) Mean Corpuscular Volume 84.3 fL (80.0-100.0) Mean Corpuscular Hemoglobin 29.3 pg (28.0-32.0) Mean Corpuscular Hemoglobin Concent 34.8 g/dL (32.0-36.0) Red Cell Distribution Width 13.3 % (11.8-14.3) Platelet Count 213 10^3/uL (140-450) Mean Platelet Volume 8.2 fL (6.9-10.8) Neutrophils (%) (Auto) 77.5 % (37.0-80.0) Lymphocytes (%) (Auto) 12.9 % (10.0-50.0) Monocytes (%) (Auto) 9.6 % (0.0-12.0) Eosinophils (%) (Auto) 0.0 % (0.0-7.0) Basophils (%) (Auto) 0.0 % (0.0-2.0) Neutrophils # (Auto) 6.2 10 ^3/uL (1.6-8.6) Lymphocytes # (Auto) 1.0 10 ^3/uL (0.4-5.4) Monocytes # (Auto) 0.8 10 ^3/uL (0-1.3) Eosinophils # (Auto) 0 10 ^3/uL (0-0.8) Basophils # (Auto) 0 10 ^3/uL (0-0.2) Nucleated Red Blood Cells 0.0 % Sodium Level 140 mmol/L (136-145) Potassium Level 3.9 mmol/L (3.5-5.1) Chloride Level 103 mmol/L (98-107) Carbon Dioxide Level 24 mmol/L (20-31) Anion Gap 13 (5-15) Blood Urea Nitrogen < 5 mg/dL (9-23) Creatinine 0.73 mg/dL (0.700-1.30) Glomerular Filtration Rate Calc 134 mL/min (>90) BUN/Creatinine Ratio 6.8 (10.0-20.0) Serum Glucose 116 mg/dL (74-106) Lactic Acid Level 1.1 mmol/L (0.4-2.0) Calcium Level 9.2 mg/dL (8.7-10.4) Total Bilirubin 0.6 mg/dL (0.2-1.0) Aspartate Amino Transferase (AST) 28 U/L (13-40) Alanine Aminotransferase (ALT) 51 U/L (7-40) Alkaline Phosphatase 95 U/L (46-116) Total Protein 7.4 g/dL (5.7-8.2) Albumin 4.6 g/dL (3.2-4.8) Prothrombin Time 12.1 sec (9.3-11.8) Prothrombin Time INR 1.16 (0.9-1.15) Activated Partial Thromboplast Time 29.6 SEC (24.5-34.5) Urine Color Light-yellow (Yellow) Urine Clarity Clear (Clear) Urine pH 7.0 (5.0-9.0) Urine Specific [place] 1.010 (1.001-1.035) Urine Protein Negative (Negative) Urine Ketones Negative (Negative) Urine Blood Negative /uL (Negative) Urine Nitrite Negative (Negative) Urine Bilirubin Negative (Negative) Urine Urobilinogen Normal mg/dL (Negative) Urine Leukocyte Esterase Negative /uL (Negative) Urine RBC <1 /hpf (0 - 3) Urine Microscopic WBC 1 /HPF (0-3) Urine Squamous Epithelial Cells None seen /hpf (<5) Urine Bacteria None seen /hpf (None Seen) Urine Glucose Normal mg/dL (Normal) Urine Opiates Screen Neg (NEGATIVE) Urine Fentanyl Screen Neg (NEGATIVE) Urine Barbiturates Screen Neg (NEGATIVE) Urine Phencyclidine Screen Neg (NEGATIVE) Urine Amphetamines Screen Neg (NEGATIVE) Urine Benzodiazepines Screen Neg (NEGATIVE) Urine Cocaine Screen Neg (NEGATIVE) Urine Cannabinoids Screen Neg (NEGATIVE) Test 04/14/25 17:04 Thyroid Stimulating Hormone (TSH) 0.63 uIU/mL (0.55-4.78) Other Laboratory Tests 04/16/25 05:47 Brief Hx & Hospital Course: History on admission brief hospital course: Jesusita Archibald is a 19-year-old male with no past medical history who presented to the hospital with complaints of abdominal pain. He rates the pain an 8 on 10 in intensity, diffuse in quality, expanding, sudden in onset, continuous, with no radiation, increases with moving and in the supine position and decreases with sitting down. He tried laxatives but was not able to pass stools. He also reports of associated vomiting and chills. He denies any fever, headache or shortness of breath. Patient had tachycardia, tachypnea and leukocytosis on arrival. CT abdomen revealed acute appendicitis with multiple obstructing appendicolith. Surgery was consulted, patient underwent laparoscopic cholecystectomy. He is hemodynamically stable, leukocytosis has resolved. Patient will be discharged home and will follow-up with surgery as outpatient. Conditions treated during stay: Severe Sepsis Due to acute appendicitis Acute appendicitis with multiple obstructing appendicoliths s/p Laparoscopic appendectomy Hepatic steatosis Grade I obesity Plan: Continue Augmentin t.i.d. for 3 days Continue pain medication as needed Follow with PCP in 1 week Follow with surgery in 7-10 days Operations or Procedures Operative Report - 2 Report Details Date: 04/15/25 Preop Diagnosis: 1. Acute appendicitis Postop Diagnosis: 1. Same Surgeon: Ranjit Roman MD Traveling Phlebotomist: None Anesthesiologist: Lizzette Unger CRNA Anesthesia: General, Local Consent: The surgery and its risks including but not limited to infection, bleeding requiring possible blood transfusion with the risk of hepatitis or HIV infection, possible open surgery, possibility that the abdominal pain is caused by different intra-abdominal pathology other than acute appendicitis in which case we will proceed with the appendectomy if it is safe to do so and then treat the problem according to intraoperative findings were explained to the patient. All questions were answered to his satisfaction. He expressed verbal understanding and wished to proceed with the surgery. Complications: None Estimated Blood Loss: 20 mL Fluids: 1400 mL Name of Procedure Performed Laparoscopic appendectomy Procedure Details Procedure Details: After induction of general anesthesia, a Bhatia catheter was placed by the OR nursing staff. Patient's abdomen was then prepped and draped in standard surgical fashion. A small infraumbilical incision was made and this incision was taken through the abdominal wall down to the fascia which was opened sharply. Peritoneum was then bluntly divided gaining access to the intra- abdominal cavity. Interrupted 0 Vicryl sutures were placed through the fascial incision and using an open technique, Marie trocar was introduced and secured using the Vicryl sutures. Abdomen was insufflated to 15 mmHg and camera was inserted. Visual examination of the intestine under the fascial incision appeared normal without injury. Under direct visualization, a 5 mm bladeless trocar was placed in the left lower quadrant and a 2nd 5 mm bladeless trocar was placed in the suprapubic region both under direct visualization. Examination of the right lower quadrant revealed inflamed and slightly dilated appendix without perforation. Endovascular stapler was used to staple across the mesoappendix to the base of the appendix. The base of the appendix was then stapled and divided using a regular endo stapler. Appendix was then removed from the abdominal cavity using an endo pouch bag and sent off the surgical field. Abdomen was then re-insufflated and staple line was examined which appeared intact without bleeding or leaks. There was small amount of slightly cloudy fluid collected in the pelvis which was aspirated away. Pelvic area was then well irrigated until fluid was clear. Trocars were then removed under direct visualization as the abdomen was deflated. Additional interrupted 0 Vicryl sutures were placed through the fascial incision and and the sutures were tied down closing off the infraumbilical fascia. Surgical sites were irrigated injected with 20 mL of 1% lidocaine with epinephrine. Skin incisions were closed using deven. Surgical sites were cleaned and dried and dressings were applied. Sponge, needle, instrument count at the end of the case were reported to be correct by the nursing staff. The patient tolerated procedure well and was awake, extubated and transferred to recovery in stable condition. Specimen: Appendix Condition Stable Technique: CT axial images of the abdomen and pelvis are obtained without contrast. Coronal and sagittal reformats were obtained. Radiation Dose Information: CTDI volume is 18 mGy. Dose-length product is 1061 mGy*cm Comparison: None FINDINGS: There is limited interpretation of the abdomen and pelvis without administration of intravenous contrast. Lung bases demonstrate no pleural effusion. Adrenal glands, spleen, pancreas unremarkable in shape. Hepatic steatosis. No CT evidence for cholelithiasis. There is no hydronephrosis, nephrolithiasis. Stomach is partially distended. Small bowel loops are normal in caliber. Moderate volume stool within the colon. Appendix is enlarged measuring 10 mm in diameter. There are multiple obstructing appendicoliths measuring up to 7 mm. Right lower quadrant lymph nodes measuring up to 9 mm. Bladder partially distended. No free pelvic fluid. No inguinal lymphadenopathy. Mild bilateral sacroiliac degenerative joint disease. IMPRESSION: Limited evaluation without contrast. Acute appendicitis with multiple obstructing appendicoliths. Hepatic steatosis. Critical Result: Appendicitis Findings discussed with Dr Carpio , at 04/14/2025 06:32 PM, and acknowledged receipt and understanding of the findings. --------- EXAM: XY CHEST PORTABLE CLINICAL HISTORY: SHORTNESS OF BREATH TECHNIQUE: Single AP view of the chest WID: COMPARISON: XY CHEST PORTABLE on DOS: 04/14/25 FINDINGS: Lines and tubes: None Chest: The heart size and pulmonary vasculature is within normal limits. No pleural effusion, pneumothorax, or consolidation. The osseous structures are grossly intact. IMPRESSION: 1. No acute cardiopulmonary abnormality. Condition at Discharge: Stable Final Diagnosis/Problems List Severe Sepsis Due to acute appendicitis Acute appendicitis with multiple obstructing appendicoliths s/p Laparoscopic appendectomy Hepatic steatosis Grade I obesity Discharge Disposition: Home Discharge Instruct/Medications Diet: Regular Activity: No Restrictions, As Tolerated Follow Up/Referral: Follow with PCP in 1 week Follow with surgery as outpatient in 7-10 days Medications: As per EHR New Medications: Amoxicillin & Pot Clavulanate (Augmentin Tablet) 875 Mg Tb 875 MG PO BID for 3 Days, #6 TAB Acetaminophen (Acetaminophen) 325 Mg Tab 650 MG PO Q8HPRN PRN for 5 Days, #30 TAB Discharge Statement: "Patient was advised to return to the ER or call 911 if any headaches, dizziness, shortness of breath, chest pain, abdominal pain, bleeding, fevers, or worsening of medical condition. Patient was counseled about treatment plan, medications, possible side effects, patientverbalized understanding. All questions were answered to the best of my ability. This discharge took greater then 30 minutes in planning, reviewing documentation, counseling the patient, and discussing with other team members." ASSESSMENT ASSESSMENT Assessment Severe Sepsis Due to acute appendicitis Acute appendicitis with multiple obstructing appendicoliths s/p Laparoscopic appendectomy Hepatic steatosis Grade I obesity Date of Service: Apr 16, 2025 Billing Provider: KODY JARQUIN MD Common Visit Codes: 46255-LYQ/OBS DISCH DAY >30min LESLIE RIVERA RESIDENT Apr 16, 2025 15:55
[2025-04-16 17:00] VITALS: BP 117/69; PULSE 77; RESP 20; TEMP 98; O2SAT 99
[2025-04-17 11:13] LABS: Hepatitis C Antibody Negative (Negative)
== END 2025-04-16 18:12 | disposition home or self-care (01) | DRG 710 ==
LOC: ER 15:36 → OVERFLOW 18:34 → WEST WING 23:39
PROVIDERS: ATTEND Emergency Medicine
PROC: 0DTJ4ZZ Resection of Appendix, Percutaneous Endoscopic Approach (ICD-10-PCS; principal; 2025-04-15 12:11)
DX: A41.9 Sepsis, unspecified organism (principal); K35.80 Unspecified acute appendicitis; R65.20 Severe sepsis without septic shock; K76.0 Fatty (change of) liver, not elsewhere classified; E66.9 Obesity, unspecified; Z68.33 Body mass index [BMI] 33.0-33.9, adult
CPT/HCPCS: 36415; 71045; 74176; 80053; 80307; 81001; 83605; 84443; 85025; 85610; 85730; 86706; 86803; 87040; 94640; 96365; 99291; 99292; G0378; J0131; J0690; J1100; J2250; J2405; J2470; J2543; J2704; J3490